=== PATIENT | female | born 1955 | race Caucasian/White ===

== ENCOUNTER 2021-01-02 02:31 | Inpatient (IN) | payer MEDICARE, OTHER ==
[2021-01-02] MEDS ORDERED: Albuterol 0.083% 2.5 MG/3 ML Neb Soln NEB ONE (02:53)
[2021-01-02] MEDS ORDERED: Furosemide 40 MG/4 ML VIAL IVPUSH ONE (02:54)
--- NOTE | 2021-01-02 02:58 | EDM.PDOC ---
ED HPI GENERAL MEDICAL PROBLEM - General Chief Complaint: Respiratory Problem Stated Complaint: S.O.B. Time Seen by Provider: 01/02/21 02:55 Source of Information: Reports: Patient, EMS History Limitations: Reports: No Limitations - History of Present Illness INITIAL COMMENTS - FREE TEXT/NARRATIVE: pt has had increased sob in the last 2 days. She had her lung tapped in [place] last week. pt has a mass in her neck and left lung. Biopsies are pending. Onset: Gradual Duration: Hour(s): Location: Reports: Chest, Generalized Associated Symptoms: Reports: Cough, Shortness of Breath, Weakness Abdomen Pain Score (Numeric/FACES): 8 - Related Data Allergies Allergy/AdvReac Type Severity Reaction Status Date / Time No Known Allergies Allergy Verified 01/02/21 02:45 Home Meds: Home Meds amLODIPine [Norvasc] 10 mg PO DAILY 01/02/21 [History] Social & Family History - Tobacco Use Tobacco Use Status *Q: Former Tobacco User Used Tobacco, but Quit: Yes Month/Year Tobacco Last Used: 01/02 - Caffeine Use Caffeine Use: Reports: Coffee - Recreational Drug Use Recreational Drug Use: No ED ROS GENERAL - Review of Systems Review Of Systems: See Below Constitutional: Reports: Malaise, Weakness, Weight Loss HEENT: Reports: No Symptoms Respiratory: Reports: Shortness of Breath, Wheezing, Cough Cardiovascular: Reports: Palpitations Endocrine: Reports: No Symptoms GI/Abdominal: Reports: No Symptoms : Reports: No Symptoms Musculoskeletal: Reports: No Symptoms Skin: Reports: No Symptoms ED EXAM, GENERAL - Physical Exam Exam: See Below Free Text/Narrative:: pt arrived with mid abdomanal pain. She states this started tonight. She has a large mas in her rt neck that has been biopsied in [place]. The path reports are not back. She has a mass in her left chest that has also been biopsied. She had her chest tapped in [place] last week. She is alot more sob tonight. Exam Limited By: No Limitations General Appearance: Alert, Anxious, Moderate Distress, Other (pt is very wheezy. ) Ears: Normal TMs Nose: Normal Inspection Throat/Mouth: Normal Inspection Head: Atraumatic Neck: Other (pt has a large mass on the left side of the neck. ) Respiratory/Chest: Decreased Breath Sounds, Rhonchi, Wheezing Cardiovascular: Regular Rate, Rhythm, Tachycardia GI/Abdominal: Other (pt is very tender in thwe mid abdoman. ) (Female) Exam: Deferred Rectal (Female) Exam: Deferred Back Exam: Normal Inspection Extremities: Pedal Edema, Other (more on the rt than the left. ) Neurological: Alert, Oriented, Normal Cognition Psychiatric: Anxious Course - Vital Signs Last Recorded V/S: Last Vital Signs Temp 36.6 C 01/03/21 00:00 Pulse 92 01/02/21 22:00 Resp 26 H 01/03/21 00:00 BP 129/102 H 01/03/21 00:00 Pulse Ox 95 01/03/21 00:00 - Orders/Labs/Meds Orders: Active Orders 24 hr Category Date Time Status Chest 1V Frontal [CR] Stat Exams 01/02/21 02:52 Taken EKG 12 Lead [EK] Routine Ther 01/02/21 02:54 Stop Req Medication Orders Acetaminophen (Tylenol) 650 mg PO Q4H PRN PRN Reason: Pain (Mild 1-3)/fever Amlodipine Besylate (Norvasc) 10 mg PO DAILY [facility] Last Admin: 01/02/21 11:09 Dose: Not Given Documented by: ABHI Hydromorphone HCl (Dilaudid) 0.5 mg IVPUSH Q2H PRN PRN Reason: Pain Last Admin: 01/02/21 23:32 Dose: 0.5 mg Documented by: KIMMY Meropenem 1 gm/ Sodium (Chloride) 100 mls @ 200 mls/hr IV Q8H [facility] Last Admin: 01/02/21 21:46 Dose: 200 mls/hr Documented by: Infusion: 01/02/21 14:45 Dose: 200 mls/hr Documented by: Admin: 01/02/21 14:15 Dose: 200 mls/hr Documented by: ABHI Levofloxacin/Dextrose 750 mg/ (Premix) 150 mls @ 100 mls/hr IV Q48H [facility] Last Admin: 01/02/21 16:26 Dose: 100 mls/hr Documented by: ABHI Vancomycin HCl 0.75 gm/ Sodium (Chloride) 250 mls @ 166.667 mls/hr IV Q24H [facility] Last Admin: 01/02/21 18:06 Dose: 166.667 mls/hr Documented by: ABHI Norepinephrine Bitartrate 4 mg (/ Dextrose/Water) 250 mls @ 7.5 mls/hr IV TITRATE KEYSHAWN; Protocol Last Titration: 01/02/21 23:32 Dose: 4 mcg/min, 15 mls/hr Documented by: Titration: 01/02/21 20:03 Dose: 3 mcg/min, 11.25 mls/hr Documented by: Admin: 01/02/21 18:49 Dose: 2 mcg/min, 7.5 mls/hr Documented by: ABHI Dextrose/Lactated Ringer's (Dextrose 5%-Lactated Ringers) 1,000 mls @ 100 mls/hr IV ASDIRECTED KEYSHAWN Last Admin: 01/02/21 20:35 Dose: 100 mls/hr Documented by: FRANCIS Nicotine (Habitrol) 21 mg TRDERM DAILY [facility] Last Admin: 01/02/21 18:42 Dose: 21 mg Documented by: ABHI Ondansetron HCl (Zofran) 4 mg IV Q4H PRN PRN Reason: Nausea/Vomiting Last Admin: 01/02/21 12:47 Dose: 4 mg Documented by: OCTAVIO Sodium Chloride (Saline Flush) 10 ml FLUSH ASDIRECTED PRN PRN Reason: Keep Vein Open Vancomycin HCl (Vancomycin) 1 gm IV .PHARMACY TO DOSE KEYSHAWN Labs: Laboratory Tests 01/02/21 01/02/21 01/02/21 Range/Units 02:52 02:59 03:00 WBC 9.6 (4.5-11.0) K/uL RBC 4.92 (3.30-5.50) M/uL Hgb 14.3 (12.0-15.0) g/dL Hct 41.9 (36.0-48.0) % MCV 85 (80-98) fL MCH 29 (27-31) pg MCHC 34 (32-36) % Plt Count 523 H (150-400) K/uL Neut % (Auto) 89 H (36-66) % Lymph % (Auto) 5 L (24-44) % [place] % (Auto) 6 (2-6) % Eos % (Auto) 0 L (2-4) % Baso % (Auto) 0 (0-1) % Puncture Site ABG pH (7.350-7.450) ABG pCO2 (35.0-42.0) mmHg ABG pO2 (75.0-100.0) mmHg ABG HCO3 (22.0-26.0) mmol/L ABG Total CO2 (21.0-25.0) mmol/L ABG O2 Saturation (95.0-98.0) % ABG O2 Content (15.0-23.0) %vol ABG Base Excess mm/L ABG Hemoglobin (12.0-16.0) g/dL ABG Oxyhemoglobin % ABG Carboxyhemoglobin (0.0-1.6) % ABG Methemoglobin % Sergey Test O2 Delivery Device Oxygen Flow Rate L Sodium 129 L (140-148) mmol/L Potassium 4.9 (3.6-5.2) mmol/L Chloride 92 L (100-108) mmol/L Carbon Dioxide 24 (21-32) mmol/L Anion Gap 17.9 H (5.0-14.0) mmol/L BUN 18 (7-18) mg/dL Creatinine 1.2 H (0.6-1.0) mg/dL Est Cr Clr Drug Dosing 35.00 mL/min Estimated GFR (MDRD) 45 L (>60) Glucose 125 H (74-106) mg/dL Calcium 9.2 (8.5-10.1) mg/dL Total Bilirubin 0.5 (0.2-1.0) mg/dL AST 73 H (15-37) U/L ALT 37 (12-78) U/L Alkaline Phosphatase 68 (46-116) U/L Total Protein 7.5 (6.4-8.2) g/dL Albumin 2.6 L (3.4-5.0) g/dL Globulin 4.9 H (2.3-3.5) g/dL Albumin/Globulin Ratio 0.5 L (1.2-2.2) Amylase (25-115) U/L Lipase (73-393) U/L TSH, Ultra Sensitive 2.491 (0.358-3.740) uIU/mL 01/02/21 01/02/21 Range/Units 03:25 03:51 WBC (4.5-11.0) K/uL RBC (3.30-5.50) M/uL Hgb (12.0-15.0) g/dL Hct (36.0-48.0) % MCV (80-98) fL MCH (27-31) pg MCHC (32-36) % Plt Count (150-400) K/uL Neut % (Auto) (36-66) % Lymph % (Auto) (24-44) % [place] % (Auto) (2-6) % Eos % (Auto) (2-4) % Baso % (Auto) (0-1) % Puncture Site R radial ABG pH 7.347 L (7.350-7.450) ABG pCO2 37.7 (35.0-42.0) mmHg ABG pO2 88.0 (75.0-100.0) mmHg ABG HCO3 20.1 L (22.0-26.0) mmol/L ABG Total CO2 17.9 L (21.0-25.0) mmol/L ABG O2 Saturation 95.6 (95.0-98.0) % ABG O2 Content 18.8 (15.0-23.0) %vol ABG Base Excess -4.5 mm/L ABG Hemoglobin 14.4 (12.0-16.0) g/dL ABG Oxyhemoglobin 92.4 % ABG Carboxyhemoglobin 2.5 H (0.0-1.6) % ABG Methemoglobin 0.8 % Sergey Test Passed O2 Delivery Device Nasal cannula Oxygen Flow Rate 2.5 L Sodium (140-148) mmol/L Potassium (3.6-5.2) mmol/L Chloride (100-108) mmol/L Carbon Dioxide (21-32) mmol/L Anion Gap (5.0-14.0) mmol/L BUN (7-18) mg/dL Creatinine (0.6-1.0) mg/dL Est Cr Clr Drug Dosing mL/min Estimated GFR (MDRD) (>60) Glucose (74-106) mg/dL Calcium (8.5-10.1) mg/dL Total Bilirubin (0.2-1.0) mg/dL AST (15-37) U/L ALT (12-78) U/L Alkaline Phosphatase (46-116) U/L Total Protein (6.4-8.2) g/dL Albumin (3.4-5.0) g/dL Globulin (2.3-3.5) g/dL Albumin/Globulin Ratio (1.2-2.2) Amylase 159 H (25-115) U/L Lipase 186 (73-393) U/L TSH, Ultra Sensitive (0.358-3.740) uIU/mL Meds: Medications Generic Name Dose Route Start Last Admin Trade Name Freq PRN Reason Stop Dose Admin Acetaminophen 650 mg 01/02/21 10:09 Tylenol PO Q4H PRN Pain (Mild 1-3)/fever Amlodipine Besylate 10 mg 01/02/21 11:00 01/02/21 11:09 Norvasc PO Not Given DAILY [facility] Hydromorphone HCl 0.5 mg 01/02/21 18:18 01/02/21 23:32 Dilaudid IVPUSH 0.5 mg Q2H PRN Administration Pain Meropenem 1 gm/ Sodium 100 mls @ 200 mls/hr 01/02/21 14:00 01/02/21 21:46 Chloride IV 200 mls/hr Q8H [facility]WN Administration Levofloxacin/Dextrose 750 mg/ 150 mls @ 100 mls/hr 01/02/21 16:00 01/02/21 16:26 Premix IV 100 mls/hr Q48H [facility]WN Administration Vancomycin HCl 0.75 gm/ Sodium 250 mls @ 166.667 mls/hr 01/02/21 17:00 01/02/21 18:06 Chloride IV 166.667 mls/hr Q24H [facility]WN Administration Norepinephrine Bitartrate 4 mg 250 mls @ 7.5 mls/hr 01/02/21 18:30 01/02/21 23:32 / Dextrose/Water IV 4 mcg/min TITRATE KEYSHAWN 15 mls/hr Titration Protocol 2 MCG/MIN Dextrose/Lactated Ringer's 1,000 mls @ 100 mls/hr 01/02/21 20:30 01/02/21 20:35 Dextrose 5%-Lactated Ringers IV 100 mls/hr ASDIRECTED KEYSHAWN Administration Nicotine 21 mg 01/02/21 18:30 01/02/21 18:42 Habitrol TRDERM 21 mg DAILY [facility] Administration Ondansetron HCl 4 mg 01/02/21 10:09 01/02/21 12:47 Zofran IV 4 mg Q4H PRN Administration Nausea/Vomiting Sodium Chloride 10 ml 01/02/21 10:09 Saline Flush FLUSH ASDIRECTED PRN Keep Vein Open Vancomycin HCl 1 gm 01/02/21 16:00 Vancomycin IV .PHARMACY TO DOSE KEYSHAWN Discontinued Medications Generic Name Dose Route Start Last Admin Trade Name Freq PRN Reason Stop Dose Admin Albuterol 2.5 mg 01/02/21 02:53 01/02/21 03:01 Proventil Neb Soln NEB 01/02/21 02:54 2.5 mg ONETIME ONE Administration Albuterol Confirm 01/02/21 03:04 01/02/21 03:58 Proventil Neb Soln Administered 01/02/21 03:05 Not Given Dose 2.5 mg .ROUTE .STK-MED ONE Furosemide 60 mg 01/02/21 02:54 01/02/21 03:05 Lasix IVPUSH 01/02/21 02:55 60 mg ONETIME ONE Administration Hydromorphone HCl 0.5 mg 01/02/21 03:52 01/02/21 03:59 Dilaudid IVPUSH 01/02/21 03:53 0.5 mg ONETIME ONE Administration Hydromorphone HCl 0.5 mg 01/02/21 06:08 01/02/21 06:13 Dilaudid IVPUSH 01/02/21 06:09 0.5 mg ONETIME ONE Administration Sodium Chloride 1,000 mls @ 100 mls/hr 01/02/21 04:15 01/02/21 04:32 Normal Saline IV 100 mls/hr ASDIRECTED KEYSHAWN Administration Meropenem 500 mg/ Sodium 50 mls @ 100 mls/hr 01/02/21 08:00 01/02/21 08:19 Chloride IV 01/02/21 08:29 100 mls/hr ONETIME ONE Administration Sodium Chloride 1,000 mls @ 75 mls/hr 01/02/21 10:09 01/02/21 13:23 Normal Saline IV 75 mls/hr ASDIRECTED KEYSHAWN Administration Lactated Ringer's 500 mls @ 500 mls/hr 01/02/21 14:12 01/02/21 14:17 Ringers, Lactated IV 01/02/21 15:11 500 mls/hr BOLUS ONE Administration Lactated Ringer's 1,000 mls @ 500 mls/hr 01/02/21 16:00 01/02/21 16:09 Ringers, Lactated IV 01/02/21 18:01 500 mls/hr ASDIRECTED KEYSHAWN Administration Sodium Polystyrene Sulfonate 45 gm 01/02/21 20:14 01/02/21 20:35 Kayexalate RECTAL 01/02/21 20:15 45 gm NOW ONE Administration - Re-Assessments/Exams Free Text/Narrative Re-Assessment/Exam: 01/02/21 03:34 chest shows a whiteout on the left chest, She has abdomanal pain and is tender in the mid abdoman. Acat scan without contrast was obtained. There was a very small amout of free air in the abdoman. Dr Estevez did look at this and felt we should admit and watch. 01/02/21 04:40 01/03/21 00:28 Departure - Departure Time of Disposition: 07:00 Disposition: Admitted As Inpatient 65 Condition: Fair Clinical Impression: Abdominal pain, Pleural effusion due to another disorder, COPD (chronic obstructive pulmonary disease) - Discharge Information Sepsis Event Note (ED) - Evaluation Sepsis Screening Result: Possible Severe Sepsis Risk - My Orders Last 24 Hours: My Active Orders 01/02/21 02:52 Chest 1V Frontal [CR] Stat 01/02/21 02:54 EKG 12 Lead [EK] Routine - Assessment/Plan Last 24 Hours: My Active Orders 01/02/21 02:52 Chest 1V Frontal [CR] Stat 01/02/21 02:54 EKG 12 Lead [EK] Routine
[2021-01-02] MEDS ORDERED: Albuterol 0.083% 2.5 MG/3 ML Neb Soln ONE (03:04)
[2021-01-02] MEDS ORDERED: HYDROmorphone 0.5 MG/0.5 ML Syringe IVPUSH ONE ×2 (03:52→06:08)
[2021-01-02] MEDS ORDERED: Sodium Chloride 0.9% 1,000 ML IV SCH ×2 (04:15→10:09)
--- NOTE | 2021-01-02 05:20 | CRLCT ---
INDICATION: Mid abdominal pain TECHNIQUE: Axial images were obtained from the diaphragm to the pubic symphysis. Reformats were obtained in the coronal and sagittal plane. IV Contrast: None Oral Contrast: None COMPARISON: None. FINDINGS: Lower chest: Large left pleural effusion filling the left lung base. Liver: Unremarkable. Normal in size and attenuation. No masses. Gallbladder and bile ducts: Unremarkable. No stones or inflammation. No biliary dilatation. Spleen: Unremarkable. Normal in size without mass. Pancreas: Unremarkable. No mass or inflammation. Adrenal glands: Slight nodularity of the left adrenal gland with some adjacent low density, possibly part of a adrenal adenoma. Kidneys: There is an exophytic solid appearing mass at the lower pole of the right kidney measuring 6.3 centimeters (3, 51). This extends posteriorly and inferiorly from the kidney. Vasculature: Atherosclerosis without abdominal aortic aneurysm. GI tract: There is a small amount of ascites within the abdomen with few bubbles of air within the peritoneal cavity which appear extraluminal (examples: Series 2, image 58; series 2, image 31; series 2, image 12). No evidence of obstruction. Evaluation of the bowel is limited given the absence of oral intravenous contrast although there may be some small bowel wall thickening along the left abdomen (2, 69). Pelvis: Unremarkable. Bones: Unremarkable for age. IMPRESSION: 1. Small ascites with minimal pneumoperitoneum. In the absence of surgery this is suspicious for whole organ perforation. A clear etiology is not seen although note is made of potentially some mildly thickened loops of small bowel within the left abdomen. 2. Exophytic right renal mass highly suspicious for malignancy. 3. Large left pleural effusion. 4. Other incidental findings as detailed above. Results called to Dr. Qureshi at 0516 on 01/02/[address] all [address] scans at this facility use dose modulation, iterative reconstruction, and/or weight-based dosing when appropriate to reduce radiation dose to as low as reasonably achievable. Dictated by Maximo Doty MD @ Jan 02 2021 5:06AM Signed by Dr. Maximo Doty @ Jan 02 2021 5:20AM
[2021-01-02] MEDS ORDERED: Meropenem 500 MG in Sodium Chloride 0.9% 50 ML IV ONE ×2 (07:08→08:00)
--- NOTE | 2021-01-02 07:46 | PCM.HP.2 ---
H&P History of Present Illness - General Date of Service: 01/02/21 Admit Problem/Dx: Admission Diagnosis/Problem Admission Diagnosis/Problem Pleural effusion Source of Information: Patient, Family, Provider, RN Notes Reviewed History Limitations: Reports: No Limitations - History of Present Illness Initial Comments - Free Text/Narative: Ms. Coto is a 65-year-old woman who was admitted through the emergency department with increased shortness of breath and hypoxia secondary to a left pleural effusion as well as abdominal pain and possible free air within the abdomen. She states that she typically does not come in for healthcare. She recently noted a mass in her right neck and symptoms of increased shortness of breath. She initially went into [facility] in [place] and was then transferred to [place]. While in [place] was noted to have a left lung mass as well as the mass in her right neck and a mass on the right kidney. She is felt to have underlying malignancy, recent biopsy results are pending. While in [place] she also was found to have a large left pleural effusion and underwent thoracentesis. She was discharged home from the hospital and scheduled for follow-up appointment with oncology in [place] on Sunday of this week. In the last 24 hours is developed increased shortness of breath and also increasing abdominal pain. She presented to our emergency department for further evaluation. Chest x-ray shows a large left pleural effusion, consistent with her previous history. Because of her increased abdominal pain CT scan of the abdomen was obtained and shows a small amount of pneumoperitoneum. This has been reviewed by Dr. Estevez with the current plan to be for monitoring with antibiotic therapy. Abdomen Pain Score (Numeric/FACES): 8 - Related Data Allergies/Adverse Reactions: Allergies Allergy/AdvReac Type Severity Reaction Status Date / Time No Known Allergies Allergy Verified 01/02/21 02:45 Home Medications: Home Meds amLODIPine [Norvasc] 10 mg PO DAILY 01/02/21 [History] Past Medical History HEENT History: Reports: Impaired Vision Cardiovascular History: Reports: Hypertension Respiratory History: Reports: SOB, Other (See Below) Other Respiratory History: thoracentesis 12/22/20 Musculoskeletal History: Reports: Fracture, Other (See Below) Other Musculoskeletal History: right clavicle fx with surgical repair - Infectious Disease History Infectious Disease History: Reports: Chicken Pox, Measles, Mumps - Past Surgical History Respiratory Surgical History: Reports: Thoracentesis GI Surgical History: Reports: Hernia, Inguinal Female Surgical History: Reports: Section, Hysterectomy Social & Family History - Family History Family Medical History: No Pertinent Family History - Tobacco Use Tobacco Use Status *Q: Former Tobacco User Used Tobacco, but Quit: Yes Month/Year Tobacco Last Used: 01/02 - Caffeine Use Caffeine Use: Reports: Coffee - Recreational Drug Use Recreational Drug Use: No H&P Review of Systems - Review of Systems: Review Of Systems: See Below General: Reports: Malaise, Weakness, Fatigue. Denies: Fever, Chills HEENT: Reports: No Symptoms Pulmonary: Reports: Shortness of Breath. Denies: Wheezing, Pleuritic Chest Pain, Cough, Sputum, Hemoptysis Cardiovascular: Reports: Dyspnea on Exertion. Denies: Chest Pain, Palpitations, Orthopnea, PND, Edema, Lightheadedness Gastrointestinal: Reports: Abdominal Pain, Decreased Appetite. Denies: Diff iculty Swallowing, Distension, Nausea, Vomiting Genitourinary: Reports: No Symptoms Musculoskeletal: Reports: No Symptoms Skin: Reports: No Symptoms Psychiatric: Reports: No Symptoms Neurological: Reports: No Symptoms Hematologic/Lymphatic: Reports: No Symptoms Immunologic: Reports: No Symptoms Exam - Exam Exam: See Below - Vital Signs Vital Signs: Last Vital Signs Temp 96.7 F L 01/02/21 02:47 Pulse 94 01/02/21 06:34 Resp 22 H 01/02/21 06:34 BP 90/64 01/02/21 06:34 Pulse Ox 96 01/02/21 06:06 Weight: 106 lb - Exam Quality Assessment: Supplemental Oxygen, DVT Prophylaxis General: Alert, Oriented, Cooperative, Moderate Distress HEENT: Conjunctiva Clear, Hearing Intact, Mucosa Moist & [place], Normal Nasal Septum, Posterior Pharynx Clear, Pupils Equal Neck: Supple, Trachea Midline, +2 Carotid Pulse wo Bruit Lungs: Decreased Breath Sounds (Diffusely decreased on the right, absent on the left), Wheezing. No: Rales, Rhonchi Cardiovascular: Regular Rate, Regular Rhythm, Normal S1, Normal S2. No: Systolic Murmur, Diastolic Murmur GI/Abdominal Exam: Soft, No Organomegaly, Guarding, Tender. No: Distended, Rigid, Rebound Back Exam: Normal Inspection, Full Range of Motion Extremities: Non-Tender, No Pedal Edema Skin: Warm, Dry, Intact Neurological: Cranial Nerves Intact, Strength Equal Bilateral, Normal Speech, Normal Tone, Sensation Intact. No: Focal Deficit Neuro Extensive - Mental Status: Alert, Oriented x3, Normal Mood/Affect, Normal Cognition, Memory Intact - Patient Data Lab Results Last 24 hrs: Laboratory Results - last 24 hr 01/02/21 01/02/21 01/02/21 Range/Units 02:52 02:59 03:00 WBC 9.6 (4.5-11.0) K/uL RBC 4.92 (3.30-5.50) M/uL Hgb 14.3 (12.0-15.0) g/dL Hct 41.9 (36.0-48.0) % MCV 85 (80-98) fL MCH 29 (27-31) pg MCHC 34 (32-36) % Plt Count 523 H (150-400) K/uL Neut % (Auto) 89 H (36-66) % Lymph % (Auto) 5 L (24-44) % [place] % (Auto) 6 (2-6) % Eos % (Auto) 0 L (2-4) % Baso % (Auto) 0 (0-1) % Puncture Site ABG pH (7.350-7.450) ABG pCO2 (35.0-42.0) mmHg ABG pO2 (75.0-100.0) mmHg ABG HCO3 (22.0-26.0) mmol/L ABG Total CO2 (21.0-25.0) mmol/L ABG O2 Saturation (95.0-98.0) % ABG O2 Content (15.0-23.0) %vol ABG Base Excess mm/L ABG Hemoglobin (12.0-16.0) g/dL ABG Oxyhemoglobin % ABG Carboxyhemoglobin (0.0-1.6) % ABG Methemoglobin % Sergey Test O2 Delivery Device Oxygen Flow Rate L Sodium 129 L (140-148) mmol/L Potassium 4.9 (3.6-5.2) mmol/L Chloride 92 L (100-108) mmol/L Carbon Dioxide 24 (21-32) mmol/L Anion Gap 17.9 H (5.0-14.0) mmol/L BUN 18 (7-18) mg/dL Creatinine 1.2 H (0.6-1.0) mg/dL Est Cr Clr Drug Dosing 35.00 mL/min Estimated GFR (MDRD) 45 L (>60) Glucose 125 H (74-106) mg/dL Calcium 9.2 (8.5-10.1) mg/dL Total Bilirubin 0.5 (0.2-1.0) mg/dL AST 73 H (15-37) U/L ALT 37 (12-78) U/L Alkaline Phosphatase 68 (46-116) U/L Total Protein 7.5 (6.4-8.2) g/dL Albumin 2.6 L (3.4-5.0) g/dL Globulin 4.9 H (2.3-3.5) g/dL Albumin/Globulin Ratio 0.5 L (1.2-2.2) Amylase (25-115) U/L Lipase (73-393) U/L TSH, Ultra Sensitive 2.491 (0.358-3.740) uIU/mL 01/02/21 01/02/21 Range/Units 03:25 03:51 WBC (4.5-11.0) K/uL RBC (3.30-5.50) M/uL Hgb (12.0-15.0) g/dL Hct (36.0-48.0) % MCV (80-98) fL MCH (27-31) pg MCHC (32-36) % Plt Count (150-400) K/uL Neut % (Auto) (36-66) % Lymph % (Auto) (24-44) % [place] % (Auto) (2-6) % Eos % (Auto) (2-4) % Baso % (Auto) (0-1) % Puncture Site R radial ABG pH 7.347 L (7.350-7.450) ABG pCO2 37.7 (35.0-42.0) mmHg ABG pO2 88.0 (75.0-100.0) mmHg ABG HCO3 20.1 L (22.0-26.0) mmol/L ABG Total CO2 17.9 L (21.0-25.0) mmol/L ABG O2 Saturation 95.6 (95.0-98.0) % ABG O2 Content 18.8 (15.0-23.0) %vol ABG Base Excess -4.5 mm/L ABG Hemoglobin 14.4 (12.0-16.0) g/dL ABG Oxyhemoglobin 92.4 % ABG Carboxyhemoglobin 2.5 H (0.0-1.6) % ABG Methemoglobin 0.8 % Sergey Test Passed O2 Delivery Device Nasal cannula Oxygen Flow Rate 2.5 L Sodium (140-148) mmol/L Potassium (3.6-5.2) mmol/L Chloride (100-108) mmol/L Carbon Dioxide (21-32) mmol/L Anion Gap (5.0-14.0) mmol/L BUN (7-18) mg/dL Creatinine (0.6-1.0) mg/dL Est Cr Clr Drug Dosing mL/min Estimated GFR (MDRD) (>60) Glucose (74-106) mg/dL Calcium (8.5-10.1) mg/dL Total Bilirubin (0.2-1.0) mg/dL AST (15-37) U/L ALT (12-78) U/L Alkaline Phosphatase (46-116) U/L Total Protein (6.4-8.2) g/dL Albumin (3.4-5.0) g/dL Globulin (2.3-3.5) g/dL Albumin/Globulin Ratio (1.2-2.2) Amylase 159 H (25-115) U/L Lipase 186 (73-393) U/L TSH, Ultra Sensitive (0.358-3.740) uIU/mL Result Diagrams: 01/02/21 02:52 01/02/21 03:00 Sepsis Event Note - Evaluation Sepsis Screening Result: Possible Severe Sepsis Risk - Focused Exam Vital Signs: Vital Signs Temp Pulse Resp BP Pulse Ox 01/02/21 06:34 94 22 H 90/64 01/02/21 06:06 102 H 29 H 98/65 96 01/02/21 05:33 102 H 29 H 104/62 90 L 01/02/21 04:52 98 27 H 115/69 01/02/21 04:06 101 H 27 H 88/58 L 93 L 01/02/21 03:37 116 H 35 H 111/69 99 01/02/21 02:47 96.7 F L 114 H 30 H 107/76 97 *Q Meaningful Use (ADM) - VTE *Q VTE Pharmacological Contraindications *Q: Patient Scheduled Surgery - VTE Risk Assess *Q Each Risk Factor Represents 1 Point: Abnormal Pulmonary Function (COPD) Total Score 1 Point Risk Factors: 1 Each Risk Factor Represents 2 Points: Age 60 - 74 Years, Malignancy (present or previous) Total Score 2 Point Risk Factors: 4 Each Risk Factor Represents 3 Points: None Total Score 3 Point Risk Factors: 0 Each Risk Factor Represents 5 Points: None Total Score 5 Point Risk Factors: 0 Venous Thromboembolism Risk Factor Score *Q: 5 Problem List Initiated/Reviewed/Updated: Yes Orders Last 24hrs: Active Orders 24 hr Category Date Time Status Patient Status Manage Transfer [TRANSFER] Routine ADT 01/02/21 07:34 Ordered EKG Documentation Completion [RC] ASDIRECTED Care 01/02/21 02:54 Active RT Aerosol Therapy [RC] ASDIRECTED Care 01/02/21 02:53 Active Chest 1V Frontal [CR] Stat Exams 01/02/21 02:52 Taken UA W/MICROSCOPIC [URIN] Urgent Lab 01/02/21 02:52 Ordered Sodium Chloride 0.9% [Normal Saline] 1,000 ml Med 01/02/21 04:15 Active IV ASDIRECTED Resuscitation Status Routine Resus Stat 01/02/21 07:36 Ordered EKG 12 Lead [EK] Routine Ther 01/02/21 02:54 Ordered Medication Orders Sodium Chloride (Normal Saline) 1,000 mls @ 100 mls/hr IV ASDIRECTED KEYSHAWN Last Admin: 01/02/21 04:32 Dose: 100 mls/hr Documented by: FRANCIS Assessment/Plan Comment:: ASSESSMENT AND PLAN LARGE LEFT PLEURAL EFFUSION-likely secondary to underlying malignancy and left lung mass. This is recurrent she is status post thoracentesis done about a week and a half ago while hospitalized in [place]. She is noted increased symptoms of shortness of breath over the last 24 hours and found to be hypoxic on evaluation in the emergency department. -Consult Dr. Estevez for thoracentesis -Follow-up with oncology for treatment of malignancy ACUTE ON CHRONIC HYPOXIC RESPIRATORY FAILURE-secondary to underlying COPD and current left lung pleural effusion. -Supplemental oxygen as needed -Nebs as needed ABDOMINAL PAIN-possible underlying acute abdomen, pneumoperitoneum noted on CT scan. This has been reviewed by Dr. Estevez, current plan is for close monitoring and follow-up. -N.p.o. -IV fluids for hydration -Follow-up flatplate and upright in a.m. -Meropenem 1 g IV every 8 hours MALIGNANCY-biopsies have been obtained in [place], results pending -Follow-up with oncology MAINTENANCE ISSUES -DVT prophylaxis; SCUDs, hold on anticoagulation because of thoracentesis -GI prophylaxis; not indicated -Clemons catheter; not indicated -Nutrition; n.p.o. -Nicotine dependence; nicotine patch CODE STATUS-FULL CODE ADMISSION STATUS-patient will be admitted to inpatient status, expect at least a 2 night hospital stay for evaluation and management of problems as outlined above. At the time of this admission I do not reasonably expected evaluation and management of this problem will require more than a 96 hour hospital stay. DISPOSITION-anticipate discharge to home after the hospital stay. PRIMARY CARE PROVIDER-Angel Zamora [place] - Mortality Measure Prognosis:: Poor
[2021-01-02] MEDS ORDERED: Acetaminophen 325 MG Tab PO PRN (10:09)
[2021-01-02] MEDS ORDERED: Ondansetron 4 MG/2 ML SDV IV PRN (10:09)
[2021-01-02] MEDS ORDERED: Sodium Chloride 0.9% 10 ML Syringe FLUSH PRN (10:09)
[2021-01-02] MEDS ORDERED: amLODIPine 5 MG Tab PO SCH (11:00)
[2021-01-02] MEDS ORDERED: Lactated Ringers 500 ML IV ONE (14:12)
[2021-01-02] MEDS: Meropenem 1 GM in Sodium Chloride 0.9% 100 ML IV SCH ×2 (14:15→21:46)
[2021-01-02] MEDS ORDERED: Levofloxacin/Dextrose 5%-Water 750 MG in Premix Bag 1 BAG IV SCH (16:00)
[2021-01-02] MEDS ORDERED: Vancomycin 1 GM SDV IV SCH (16:00)
[2021-01-02] MEDS ORDERED: Lactated Ringers 1,000 ML IV SCH (16:00)
--- NOTE | 2021-01-02 17:13 | PCM.SN.2 ---
- Free Text/Narrative Note: This afternoon Ms. Napier has experienced hypotension, that has responded to fluid replacement. Labs were repeated she has developed worsening renal insufficiency with a creatinine now of 1.9 as well as significant lactic acidosis with a lactic acid level of 6.2. Apparent that she is developing sepsis, possible intra-abdominal source. Will proceed with aggressive fluid replacement per sepsis protocol. Expand IV antibiotic coverage, adding vancomycin and levofloxacin. Discussed current findings and developments with the patient and her , she would like aggressive care including surgery if required. She understands that given her current condition she is at high risk for complications with any type of surgical procedure. Reviewed with surgical service, will continue current management. Follow-up labs in approximately 4 hours to recheck renal function and lactic acid level. Plan for use of norepinephrine if she develops further hypotension despite fluid infusion. Only catheter will be placed to closely monitor urine output. Respiratory status at the present time is stable, continue current management. Consider noninvasive positive pressure ventilation if she develops further respiratory compromise. In the event of respiratory failure patient would want to proceed with intubati on and mechanical ventilation.
[2021-01-02] MEDS ORDERED: Norepinephrine 4 MG in Dextrose 5% in Water 246 ML IV SCH ×2 (18:30)
[2021-01-02] MEDS ORDERED: Nicotine 21 MG/24 Hr Patch TRDERM SCH (18:30)
[2021-01-02] MEDS ORDERED: Sodium Polystyrene Sulfonate 15 GM/60 ML Susp 60 ML Bot RECTAL ONE (20:14)
[2021-01-02] MEDS ORDERED: Dextrose 5%-Lactated Ringers 1,000 ML IV SCH (20:30)
[2021-01-02] MEDS: HYDROmorphone 0.5 MG/0.5 ML Syringe IVPUSH PRN (23:32)
[2021-01-03] MEDS: HYDROmorphone 0.5 MG/0.5 ML Syringe IVPUSH PRN ×2 (02:26→05:09)
[2021-01-03] MEDS ORDERED: LORazepam 2 MG/ML SDV IVPUSH PRN (05:57)
[2021-01-03] MEDS ORDERED: HYDROmorphone 0.5 MG/0.5 ML Syringe IVPUSH PRN (06:01)
[2021-01-03] MEDS: Meropenem 1 GM in Sodium Chloride 0.9% 100 ML IV SCH (06:02)
--- NOTE | 2021-01-03 06:56 | PCM.DCSUM1 ---
Discharge Summary - Hospital Course Brief History: Ms. Coto was a 65-year-old woman with widely metastatic cancer. She presented to the emergency room with a large left pleural effusion secondary to underlying malignancy. She also had developed increased abdominal pain with probable peritonitis. - Discharge Data Discharge Date: 01/03/21 Discharge Disposition: 20 Preliminary Cause of *Q: Sepsis & Multi System Organ Failure Event(s) Leading to Patient's *Q: Ms. Coto was a 65-year-old woman who was admitted through the emergency department with widely metastatic stage I V cancer of unknown primary. She was felt to have peritonitis and then developed sepsis. Because of her severe illness she was felt to be a very poor candidate for surgical intervention. As she worsened family requested palliative care with comfort cares and no further aggressive interventions or evaluation. Condition: - Referral to Home Health Primary Care Physician: PCP None - Discharge Diagnosis/Problem(s) (1) Metastatic cancer SNOMED Code(s): 662855137 ICD Code: C79.9 - SECONDARY MALIGNANT NEOPLASM OF UNSPECIFIED SITE Status: Acute Current Visit: Yes (2) Palliative care status SNOMED Code(s): 539268947 ICD Code: Z51.5 - ENCOUNTER FOR PALLIATIVE CARE Status: Acute Current Visit: Yes (3) Malignant pleural effusion SNOMED Code(s): 342670045 ICD Code: J91.0 - MALIGNANT PLEURAL EFFUSION Status: Acute Current Visit: Yes (4) Peritonitis (acute) generalized SNOMED Code(s): 79077503 ICD Code: K65.0 - GENERALIZED (ACUTE) PERITONITIS Status: Acute Current Visit: Yes (5) Septic shock SNOMED Code(s): 73489358 ICD Code: A41.9 - SEPSIS, UNSPECIFIED ORGANISM; R65.21 - SEVERE SEPSIS WITH SEPTIC SHOCK Status: Acute Current Visit: Yes - Patient Summary/Data Consults: Consultations 01/02/21 10:09 Consult to Physician [CONS] Routine Consulting Provider: Rony Estevez Courtesy Call Completed to Consulting Physician: Yes Reason for Consult: Large left pleural effusion, abdominal pain Hospital Course: Ms. Coto is a 65-year-old woman who was admitted through the emergency department with increased shortness of breath and hypoxia secondary to a left pleural effusion as well as abdominal pain and possible free air within the abdomen. She states that she typically does not come in for healthcare. She recently noted a mass in her right neck and symptoms of increased shortness of breath. She initially went into [facility] in [place] and was then transferred to [place]. While in [place] was noted to have a left lung mass as well as the mass in her right neck and a mass on the right kidney. She is felt to have underlying malignancy, recent biopsy results are pending. While in [place] she also was found to have a large left pleural effusion and underwent thoracentesis. She was discharged home from the hospital and scheduled for follow-up appointment with oncology in [place] on Sunday of this week. In the last 24 hours is developed increased shortness of breath and also increasing abdominal pain. She presented to our emergency department for further evaluation. Chest x-ray shows a large left pleural effusion, consistent with her previous history. Because of her increased abdominal pain CT scan of the abdomen was obtained and shows a small amount of pneumoperitoneum. This has been reviewed by Dr. Estevez with the current plan to be for monitoring with antibiotic therapy. Because of her underlying malignancy and associated comorbidities she was felt to be a very poor candidate for any type of surgical intervention. Thoracentesis was performed by Dr. Estevez in the emergency department and 800 cc of turbid fluid were removed. She did experience some improvement in her shortness of breath following the thoracentesis. She was admitted to the intensive care unit and placed on meropenem IV. Through the afternoon she developed evidence of septic shock. She initially did improve with the IV fluid bolus for sepsis, but then had further hypotension. She was started on IV norepinephrine and blood pressure did stabilize for a while after that. At that time additional antibiotic therapy was started including levofloxacin and vancomycin. We did have several discussions concerning ongoing management throughout the day with the patient as well as her . She understood that she was a very poor surgical candidate but also had very serious infection in her abdomen. Through the receptionist nurse hours she showed further evidence of respiratory as well as hemodynamic compromise and failure. At that point she was not able to make decisions for herself. Family decided that she would not want further aggressive intervention or evaluation including no surgery, intubation or mechanical ventilation. CODE STATUS was changed to DNR/DNI comfort measures only. As respiratory status declined a trial of noninvasive positive pressure ventilation was initiated. This did not help and respiratory status deteriorated further, family requested that the BiPAP be removed. She was treated with narcotics and lorazepam as needed for comfort. She at 6:24 AM on January 03, 2021. No attempts were made at resuscitation as per the family's previously expressed wishes. - Discharge Plan Home Medications: Home Meds amLODIPine [Norvasc] 10 mg PO DAILY 01/02/21 [History] - Discharge Summary/Plan Comment DC Time >30 min.: No - Patient Data Vitals - Most Recent: Last Vital Signs Temp 97.9 F 01/03/21 00:00 Pulse 92 01/02/21 22:00 Resp 18 01/03/21 06:00 BP 98/51 L 01/03/21 06:00 Pulse Ox 89 L 01/03/21 06:00 Weight - Most Recent: 105 lb 13.15 oz I&O - Last 24 hours: Intake & Output 01/02/21 01/02/21 01/03/21 14:59 22:59 06:59 Intake Total 1450 Output Total 80 46 Balance 1370 -46 Lab Results - Last 24 hrs: Laboratory Results - last 24 hr 01/02/21 01/02/21 01/02/21 Range/Units 14:55 14:55 14:55 WBC 6.9 (4.5-11.0) K/uL RBC 4.56 (3.30-5.50) M/uL Hgb 13.3 (12.0-15.0) g/dL Hct 39.4 (36.0-48.0) % MCV 86 (80-98) fL MCH 29 (27-31) pg MCHC 34 (32-36) % Plt Count 368 (150-400) K/uL Add Manual Diff Yes Neutrophils % (Manual) 42 (36-66) % Band Neutrophils % 42 H (5-11) % Lymphocytes % (Manual) 8 L (24-44) % Monocytes % (Manual) 8 H (2-6) % Polychromasia Puncture Site ABG pH (7.350-7.450) ABG pCO2 (35.0-42.0) mmHg ABG pO2 (75.0-100.0) mmHg ABG HCO3 (22.0-26.0) mmol/L ABG Total CO2 (21.0-25.0) mmol/L ABG O2 Saturation (95.0-98.0) % ABG O2 Content (15.0-23.0) %vol ABG Base Excess mm/L ABG Hemoglobin (12.0-16.0) g/dL ABG Oxyhemoglobin % ABG Carboxyhemoglobin (0.0-1.6) % ABG Methemoglobin % VBG pH (7.350-7.450) VBG pCO2 mm/Hg VBG pO2 mm/Hg VBG HCO3 mmol/L VBG Total CO2 mmol/L VBG O2 Saturation VBG O2 Content %vol VBG Base Excess mm/L O2 Delivery Device Oxygen Flow Rate L Sodium 134 L (140-148) mmol/L Potassium 4.5 (3.6-5.2) mmol/L Chloride 96 L (100-108) mmol/L Carbon Dioxide 22 (21-32) mmol/L Anion Gap 20.5 H (5.0-14.0) mmol/L BUN 25 H (7-18) mg/dL Creatinine 1.9 H D (0.6-1.0) mg/dL Est Cr Clr Drug Dosing 22.07 mL/min Estimated GFR (MDRD) 26 L (>60) Glucose 86 (74-106) mg/dL Lactic Acid 6.2 H (0.4-2.0) mmol/L Calcium 9.6 (8.5-10.1) mg/dL Magnesium (1.8-2.4) mg/dL Total Bilirubin (0.2-1.0) mg/dL AST (15-37) U/L ALT (12-78) U/L Alkaline Phosphatase (46-116) U/L Total Protein (6.4-8.2) g/dL Albumin (3.4-5.0) g/dL Globulin (2.3-3.5) g/dL Albumin/Globulin Ratio (1.2-2.2) 01/02/21 01/02/21 01/02/21 Range/Units 19:33 19:33 19:33 WBC 7.3 (4.5-11.0) K/uL RBC 4.31 (3.30-5.50) M/uL Hgb 12.0 (12.0-15.0) g/dL Hct 37.1 (36.0-48.0) % MCV 86 (80-98) fL MCH 28 (27-31) pg MCHC 32 (32-36) % Plt Count 338 (150-400) K/uL Add Manual Diff Yes Neutrophils % (Manual) 56 (36-66) % Band Neutrophils % 32 H (5-11) % Lymphocytes % (Manual) 7 L (24-44) % Monocytes % (Manual) 5 (2-6) % Polychromasia Public Speaker Puncture Site ABG pH (7.350-7.450) ABG pCO2 (35.0-42.0) mmHg ABG pO2 (75.0-100.0) mmHg ABG HCO3 (22.0-26.0) mmol/L ABG Total CO2 (21.0-25.0) mmol/L ABG O2 Saturation (95.0-98.0) % ABG O2 Content (15.0-23.0) %vol ABG Base Excess mm/L ABG Hemoglobin (12.0-16.0) g/dL ABG Oxyhemoglobin % ABG Carboxyhemoglobin (0.0-1.6) % ABG Methemoglobin % VBG pH (7.350-7.450) VBG pCO2 mm/Hg VBG pO2 mm/Hg VBG HCO3 mmol/L VBG Total CO2 mmol/L VBG O2 Saturation VBG O2 Content %vol VBG Base Excess mm/L O2 Delivery Device Oxygen Flow Rate L Sodium 133 L (140-148) mmol/L Potassium 6.0 H (3.6-5.2) mmol/L Chloride 98 L (100-108) mmol/L Carbon Dioxide 24 (21-32) mmol/L Anion Gap 17.0 H (5.0-14.0) mmol/L BUN 27 H (7-18) mg/dL Creatinine 1.8 H (0.6-1.0) mg/dL Est Cr Clr Drug Dosing 23.30 mL/min Estimated GFR (MDRD) 28 L (>60) Glucose 69 L (74-106) mg/dL Lactic Acid 4.1 H (0.4-2.0) mmol/L Calcium 8.6 (8.5-10.1) mg/dL Magnesium (1.8-2.4) mg/dL Total Bilirubin (0.2-1.0) mg/dL AST (15-37) U/L ALT (12-78) U/L Alkaline Phosphatase (46-116) U/L Total Protein (6.4-8.2) g/dL Albumin (3.4-5.0) g/dL Globulin (2.3-3.5) g/dL Albumin/Globulin Ratio (1.2-2.2) 01/02/21 01/03/21 01/03/21 Range/Units 23:01 03:30 03:34 WBC 7.9 (4.5-11.0) K/uL RBC 4.35 (3.30-5.50) M/uL Hgb 12.4 (12.0-15.0) g/dL Hct 37.1 (36.0-48.0) % MCV 85 (80-98) fL MCH 29 (27-31) pg MCHC 33 (32-36) % Plt Count 255 (150-400) K/uL Add Manual Diff Yes Neutrophils % (Manual) 51 (36-66) % Band Neutrophils % 33 H (5-11) % Lymphocytes % (Manual) 7 L (24-44) % Monocytes % (Manual) 9 H (2-6) % Polychromasia Puncture Site R brachial ABG pH 7.115 L* (7.350-7.450) ABG pCO2 67.9 H (35.0-42.0) mmHg ABG pO2 110.0 H (75.0-100.0) mmHg ABG HCO3 20.9 L (22.0-26.0) mmol/L ABG Total CO2 20.2 L (21.0-25.0) mmol/L ABG O2 Saturation 96.1 (95.0-98.0) % ABG O2 Content 17.0 (15.0-23.0) %vol ABG Base Excess -9.4 mm/L ABG Hemoglobin 12.6 (12.0-16.0) g/dL ABG Oxyhemoglobin 94.7 % ABG Carboxyhemoglobin < 0.5 (0.0-1.6) % ABG Methemoglobin 1.1 % VBG pH (7.350-7.450) VBG pCO2 mm/Hg VBG pO2 mm/Hg VBG HCO3 mmol/L VBG Total CO2 mmol/L VBG O2 Saturation VBG O2 Content %vol VBG Base Excess mm/L O2 Delivery Device Nasal cannula Oxygen Flow Rate 1.5 L Sodium (140-148) mmol/L Potassium 5.6 H (3.6-5.2) mmol/L Chloride (100-108) mmol/L Carbon Dioxide (21-32) mmol/L Anion Gap (5.0-14.0) mmol/L BUN (7-18) mg/dL Creatinine (0.6-1.0) mg/dL Est Cr Clr Drug Dosing mL/min Estimated GFR (MDRD) (>60) Glucose (74-106) mg/dL Lactic Acid (0.4-2.0) mmol/L Calcium (8.5-10.1) mg/dL Magnesium (1.8-2.4) mg/dL Total Bilirubin (0.2-1.0) mg/dL AST (15-37) U/L ALT (12-78) U/L Alkaline Phosphatase (46-116) U/L Total Protein (6.4-8.2) g/dL Albumin (3.4-5.0) g/dL Globulin (2.3-3.5) g/dL Albumin/Globulin Ratio (1.2-2.2) 01/03/21 01/03/21 01/03/21 Range/Units 03:34 03:34 05:40 WBC (4.5-11.0) K/uL RBC (3.30-5.50) M/uL Hgb (12.0-15.0) g/dL Hct (36.0-48.0) % MCV (80-98) fL MCH (27-31) pg MCHC (32-36) % Plt Count (150-400) K/uL Add Manual Diff Neutrophils % (Manual) (36-66) % Band Neutrophils % (5-11) % Lymphocytes % (Manual) (24-44) % Monocytes % (Manual) (2-6) % Polychromasia Puncture Site ABG pH (7.350-7.450) ABG pCO2 (35.0-42.0) mmHg ABG pO2 (75.0-100.0) mmHg ABG HCO3 (22.0-26.0) mmol/L ABG Total CO2 (21.0-25.0) mmol/L ABG O2 Saturation (95.0-98.0) % ABG O2 Content (15.0-23.0) %vol ABG Base Excess mm/L ABG Hemoglobin 10.5 L (12.0-16.0) g/dL ABG Oxyhemoglobin 23.7 % ABG Carboxyhemoglobin 0.5 (0.0-1.6) % ABG Methemoglobin 1.1 % VBG pH 6.963 L (7.350-7.450) VBG pCO2 88.7 mm/Hg VBG pO2 23.7 mm/Hg VBG HCO3 19.1 mmol/L VBG Total CO2 20.2 mmol/L VBG O2 Saturation 24.1 VBG O2 Content 3.5 %vol VBG Base Excess -14.0 mm/L O2 Delivery Device Bipap Oxygen Flow Rate L Sodium 131 L (140-148) mmol/L Potassium 5.6 H (3.6-5.2) mmol/L Chloride 98 L (100-108) mmol/L Carbon Dioxide 21 (21-32) mmol/L Anion Gap 17.6 H (5.0-14.0) mmol/L BUN 34 H (7-18) mg/dL Creatinine 2.0 H (0.6-1.0) mg/dL Est Cr Clr Drug Dosing 20.97 mL/min Estimated GFR (MDRD) 25 L (>60) Glucose 88 (74-106) mg/dL Lactic Acid 2.4 H (0.4-2.0) mmol/L Calcium 9.3 (8.5-10.1) mg/dL Magnesium 1.9 (1.8-2.4) mg/dL Total Bilirubin 0.2 D (0.2-1.0) mg/dL AST 135 H D (15-37) U/L ALT 47 (12-78) U/L Alkaline Phosphatase 52 (46-116) U/L Total Protein 5.7 L (6.4-8.2) g/dL Albumin 1.8 L (3.4-5.0) g/dL Globulin 3.9 H (2.3-3.5) g/dL Albumin/Globulin Ratio 0.5 L (1.2-2.2) EKATERINA Results - Last 24 hrs: Microbiology 01/02/21 08:48 Fungal Culture - Preliminary Pleural Fluid NO FUNGAL GROWTH AT 1 WEEK 01/02/21 08:36 Gram Stain - Final Pleural Fluid - Pleural Cavity, Left Body Fluid Culture - Preliminary NO GROWTH AFTER 1 DAY 01/02/21 08:48 SARAH Preparation - Final Other - Pleural Cavity, Left Med Orders - Current: Current Medications Acetaminophen (Tylenol) 650 mg PO Q4H PRN PRN Reason: Pain (Mild 1-3)/fever Amlodipine Besylate (Norvasc) 10 mg PO DAILY [facility] Last Admin: 01/02/21 11:09 Dose: Not Given Documented by: Hydromorphone HCl (Dilaudid) 0.5 mg IVPUSH Q1H PRN PRN Reason: Pain Meropenem 1 gm/ Sodium (Chloride) 100 mls @ 200 mls/hr IV Q8H [facility] Last Admin: 01/03/21 06:02 Dose: Not Given Documented by: Levofloxacin/Dextrose 750 mg/ (Premix) 150 mls @ 100 mls/hr IV Q48H [facility] Last Admin: 01/02/21 16:26 Dose: 100 mls/hr Documented by: Vancomycin HCl 0.75 gm/ Sodium (Chloride) 250 mls @ 166.667 mls/hr IV Q24H [facility] Last Admin: 01/02/21 18:06 Dose: 166.667 mls/hr Documented by: Norepinephrine Bitartrate 4 mg (/ Dextrose/Water) 250 mls @ 7.5 mls/hr IV TITRATE [facility]; Protocol Last Titration: 01/03/21 04:30 Dose: 11 mcg/min, 41.25 mls/hr Documented by: Dextrose/Lactated Ringer's (Dextrose 5%-Lactated Ringers) 1,000 mls @ 100 mls/hr IV ASDIRECTED [facility] Last Admin: 01/02/21 20:35 Dose: 100 mls/hr Documented by: Lorazepam (Ativan) 0.5 mg IVPUSH Q2H PRN PRN Reason: Agitation Nicotine (Habitrol) 21 mg TRDERM DAILY [facility] Last Admin: 01/02/21 18:42 Dose: 21 mg Documented by: Ondansetron HCl (Zofran) 4 mg IV Q4H PRN PRN Reason: Nausea/Vomiting Last Admin: 01/02/21 12:47 Dose: 4 mg Documented by: Sodium Chloride (Saline Flush) 10 ml FLUSH ASDIRECTED PRN PRN Reason: Keep Vein Open Vancomycin HCl (Vancomycin) 1 gm IV .PHARMACY TO DOSE KEYSHAWN Discontinued Medications Albuterol (Proventil Neb Soln) 2.5 mg NEB ONETIME ONE Stop: 01/02/21 02:54 Last Admin: 01/02/21 03:01 Dose: 2.5 mg Documented by: Albuterol (Proventil Neb Soln) Confirm Administered Dose 2.5 mg .ROUTE .STK-MED ONE Stop: 01/02/21 03:05 Last Admin: 01/02/21 03:58 Dose: Not Given Documented by: Furosemide (Lasix) 60 mg IVPUSH ONETIME ONE Stop: 01/02/21 02:55 Last Admin: 01/02/21 03:05 Dose: 60 mg Documented by: Hydromorphone HCl (Dilaudid) 0.5 mg IVPUSH ONETIME ONE Stop: 01/02/21 03:53 Last Admin: 01/02/21 03:59 Dose: 0.5 mg Documented by: Hydromorphone HCl (Dilaudid) 0.5 mg IVPUSH ONETIME ONE Stop: 01/02/21 06:09 Last Admin: 01/02/21 06:13 Dose: 0.5 mg Documented by: Hydromorphone HCl (Dilaudid) 0.5 mg IVPUSH Q2H PRN PRN Reason: Pain Last Admin: 01/03/21 05:09 Dose: 0.5 mg Documented by: Sodium Chloride (Normal Saline) 1,000 mls @ 100 mls/hr IV ASDIRECTED [facility] Last Admin: 01/02/21 04:32 Dose: 100 mls/hr Documented by: Meropenem 500 mg/ Sodium (Chloride) 50 mls @ 100 mls/hr IV ONETIME ONE Stop: 01/02/21 08:29 Last Admin: 01/02/21 08:19 Dose: 100 mls/hr Documented by: Sodium Chloride (Normal Saline) 1,000 mls @ 75 mls/hr IV ASDIRECTED [facility] Last Admin: 01/02/21 13:23 Dose: 75 mls/hr Documented by: Lactated Ringer's (Ringers, Lactated) 500 mls @ 500 mls/hr IV BOLUS ONE Stop: 01/02/21 15:11 Last Admin: 01/02/21 14:17 Dose: 500 mls/hr Documented by: Lactated Ringer's (Ringers, Lactated) 1,000 mls @ 500 mls/hr IV ASDIRECTED [place]WN Stop: 01/02/21 18:01 Last Admin: 01/02/21 16:09 Dose: 500 mls/hr Documented by: Sodium Polystyrene Sulfonate (Kayexalate) 45 gm RECTAL NOW ONE Stop: 01/02/21 20:15 Last Admin: 01/02/21 20:35 Dose: 45 gm Documented by: - Exam General: Reports: Other () *Q Meaningful Use (DIS) - VTE *Q VTE Pharmacological Contraindications *Q: Patient Scheduled Surgery
--- NOTE | 2021-01-03 09:55 | CR ---
CHEST: Portable 01/02/2021 at 3:08 AM CLINICAL HISTORY:SOB COMPARISON:None FINDINGS: There is complete opacification left hemithorax. There is shift of mediastinum to the left. No air bronchograms are identified. Right lung is clear. IMPRESSION: Complete opacification left hemithorax likely related to previous pneumonectomy. Left lung atelectasis felt less likely Right lung is clear
--- NOTE | 2021-01-03 09:57 | CR ---
CHEST: Portable 01/02/2021 at 8:55 AM CLINICAL HISTORY:Postthoracentesis COMPARISON:Earlier same day FINDINGS: There is complete opacification left hemithorax without significant change since prior study. There is a leftward shift of the mediastinum into the hemithorax. Right lung remains clear. There is no pneumothorax. IMPRESSION: Complete opacification left hemithorax similar to prior study No pneumothorax
== END 2021-01-03 09:26 | disposition expired | DRG 871 ==
LOC: JP.ED 02:31 → JP.MS 07:34 → JP.ICU 09:59
PROVIDERS: ADMIT Hospitalist; ATTEND Surgery
PROC: 0W9B3ZZ Drainage of Left Pleural Cavity, Percutaneous Approach (ICD-10-PCS; principal; 2021-01-02)
PROC: 5A09357 Assistance with Respiratory Ventilation, Less than 24 Consecutive Hours, Continuous Positive Airway Pressure (ICD-10-PCS; 2021-01-02)
PROC: XW033N5 Introduction of Meropenem-vaborbactam Anti-infective into Peripheral Vein, Percutaneous Approach, New Technology Group 5 (ICD-10-PCS; 2021-01-02)
DX: J91.8 Pleural effusion in other conditions classified elsewhere (principal); A41.9 Sepsis, unspecified organism; R10.9 Unspecified abdominal pain; K65.0 Generalized (acute) peritonitis; R91.8 Other nonspecific abnormal finding of lung field; R65.21 Severe sepsis with septic shock; J96.21 Acute and chronic respiratory failure with hypoxia; C79.9 Secondary malignant neoplasm of unspecified site; E87.2 Acidosis; J91.0 Malignant pleural effusion; Z51.5 Encounter for palliative care; Z66 Do not resuscitate; J44.9 Chronic obstructive pulmonary disease, unspecified; H54.7 Unspecified visual loss; I10 Essential (primary) hypertension; Z79.899 Other long term (current) drug therapy; Z90.710 Acquired absence of both cervix and uterus; Z87.891 Personal history of nicotine dependence
CPT/HCPCS: 36415; 36600; 71045 ×2; 74176; 80053; 82150; 82803; 83690; 84443; 85025; 93005; 94640; J1170 ×2; J1940; J7030; 51702; 80048; 83605; 83735; 84132; 87015; 87070; 87102; 87116; 87205; 87206; 87220; 94660; 96361; 96374; 96375; 96376; 99285; 99285-25; A9270-GY; J1956; J2185; J2405; J3370; J7050; J7060; J7120; J7121